=== PATIENT | male | born 1935 | race Caucasian/White ===

== ENCOUNTER 2021-07-27 09:33 | Outpatient (CLI) | payer MEDICARE, BC ==
[2021-07-27] MEDS ORDERED: Iopamidol 300 61% 100 ML VIAL FS ONE (09:38)
== END 2021-07-27 09:34 | disposition home or self-care (01) ==
LOC: CSHCT 09:33
PROVIDERS: ATTEND Urology
DX: C67.2 Malignant neoplasm of lateral wall of bladder (principal); N20.0 Calculus of kidney; N32.3 Diverticulum of bladder
CPT/HCPCS: 74178; 82565; Q9967

== ENCOUNTER 2021-08-05 08:53 | Emergency (ER) | payer MEDICARE, BC ==
[2021-08-05] MEDS ORDERED: Lidocaine 1% w/Epinephrine 1:100K 20 ML VIAL ONE (09:53)
== END 2021-08-05 12:33 | disposition home or self-care (01) ==
LOC: CSHERS 08:53
DX: S51.011A Laceration without foreign body of right elbow, initial encounter (principal); W18.30XA Fall on same level, unspecified, initial encounter
CPT/HCPCS: 12032